=== PATIENT | female | born 1950 | race Caucasian/White ===

== ENCOUNTER 2022-07-24 11:29 | Emergency (ER) | payer MEDICARE, BC, MEDICAID ==
[~2022-07-24] VITALS: Ht 162.6 cm; Wt 66.0 kg
[2022-07-24] MEDS ORDERED: IBUP-2029 MT (15:10)
[2022-07-24] MEDS ORDERED: IBUPROFEN 600MG TABLET PO ONE (15:15)
[2022-07-24 15:28] VITALS: BP 144/68
== END 2022-07-24 15:36 | disposition home or self-care (01) ==
LOC: ER 13:25
DX: S01.01XA Laceration without foreign body of scalp, initial encounter (principal); W01.198A Fall on same level from slipping, tripping and stumbling with subsequent striking against other object, initial encounter; Y93.89 Activity, other specified; Y92.520 Airport as the place of occurrence of the external cause
CPT/HCPCS: 12001; 99284

== ENCOUNTER 2022-08-03 11:09 | Emergency (ER) | payer MEDICARE, BC, MEDICAID ==
[~2022-08-03] VITALS: Ht 152.4 cm; Wt 61.5 kg
[~2022-08-03 11:09] MED LIST: IBUP-2029 MT
[2022-08-03 11:17] VITALS: BP 116/62
[2022-08-03] MEDS ORDERED: ACET-2708 PO (14:15)
== END 2022-08-03 14:30 | disposition home or self-care (01) ==
LOC: ER 11:09
DX: Z48.02 Encounter for removal of sutures (principal); R51.9 Headache, unspecified
CPT/HCPCS: 99282